=== PATIENT | male | born 1985 | race Caucasian/White ===

== ENCOUNTER 2017-05-19 09:25 | Emergency (ER) | payer OTHER ==
[~2017-05-19] VITALS: Ht 154.9 cm; Wt 35.3 kg
[2017-05-19] MEDS ORDERED: FLUT1SPR2 (09:38)
[2017-05-19] MEDS ORDERED: CETI10TA (09:38)
[2017-05-19] MEDS ORDERED: KETOROLAC 60 MG/2 ML VIAL (J1885) IM ONE (10:15)
[2017-05-19] MEDS ORDERED: NAPR500T PO (11:18)
[2017-05-19 11:23] VITALS: BP 144/83
--- NOTE | 2017-05-19 11:24 | REP ---
RIGHT RIB SERIES: Four views of the right ribs are performed and demonstrate no fracture or bone lesion. An accompanying view of the chest demonstrates no acute infiltrate, pneumothorax, or pleural effusion. The heart is normal in size. IMPRESSION: Negative right rib series. Signed by Haseeb Segundo MD 05/19/2017 04:55 P
--- NOTE | 2017-05-19 20:28 | ECGEPIP ---
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
== END 2017-05-19 11:26 | disposition home or self-care (01) ==
LOC: M ED 09:25
DX: M94.0 Chondrocostal junction syndrome [Tietze] (principal); Z88.2 Allergy status to sulfonamides
CPT/HCPCS: 71101; 93000; 96372; 99283; J1885

== ENCOUNTER 2018-12-07 19:13 | Emergency (ER) | payer OTHER ==
[~2018-12-07] VITALS: Ht 154.9 cm; Wt 72.7 kg
[~2018-12-07 19:13] MED LIST: CETI10TA; FLUT1SPR2; NAPR-50 PO
[2018-12-07] MEDS ORDERED: MONT10TA2 (19:23)
[2018-12-07] MEDS ORDERED: VITA50005 (19:23)
[2018-12-07] MEDS ORDERED: NAPROXEN 250 MG TAB PO ONE (20:15)
[2018-12-07] MEDS ORDERED: diazePAM 10 MG TAB PO ONE (20:15)
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
[2018-12-07] MEDS ORDERED: NAPR-50 PO (20:59)
[2018-12-07] MEDS ORDERED: ROBA500T PO (20:59)
[2018-12-07] MEDS ORDERED: LIDO1PAD TOP (21:01)
[2018-12-07 21:06] VITALS: BP 138/79
== END 2018-12-07 21:08 | disposition home or self-care (01) ==
LOC: M ED 19:13
DX: S29.012A Strain of muscle and tendon of back wall of thorax, initial encounter (principal); V47.5XXA Car driver injured in collision with fixed or stationary object in traffic accident, initial encounter; Y92.410 Unspecified street and highway as the place of occurrence of the external cause; Z79.899 Other long term (current) drug therapy; Z88.2 Allergy status to sulfonamides; F17.210 Nicotine dependence, cigarettes, uncomplicated

== ENCOUNTER 2018-12-11 03:58 | Emergency (ER) | payer OTHER ==
[~2018-12-11 03:58] MED LIST changes: +LIDO1PAD TOP; +MONT10TA2; +ROBA500T PO; +VITA50005
[2018-12-11 04:22] VITALS: BP 141/64
== END 2018-12-11 04:31 | disposition left against medical advice (07) ==
LOC: M ED 03:58
DX: Z53.21 Procedure and treatment not carried out due to patient leaving prior to being seen by health care provider (principal)

== ENCOUNTER 2018-12-21 19:18 | Emergency (ER) | payer OTHER ==
[~2018-12-21] VITALS: Ht 154.9 cm; Wt 70.0 kg
[2018-12-21 20:36] LABS: HEMATOCRIT 43.5 % (42.0-52.0); HEMOGLOBIN 14.7 g/dl (13.5-17.5); MEAN CORPUSCULAR HEMOGLOBIN 29.6 pg (27.0-33.0); MEAN CORPUSCULAR HGB CONC 33.8 g/dl (32.0-36.5); MEAN CORPUSCULAR VOLUME 87.7 fl (80.0-96.0); PLATELET COUNT, AUTOMATED 218 10^3/uL (150-450); RED BLOOD COUNT 4.96 10^6/uL (4.30-6.10); WHITE BLOOD COUNT 5.8 10^3/uL (4.0-10.0)
[2018-12-21 21:10] LABS: ACETAMINOPHEN LEVEL < 2.0 UG/ML (10.0-30.0); ALBUMIN 4.3 GM/DL (3.2-5.2); ALT/SGPT 35 U/L (12-78); BILIRUBIN,DIRECT < 0.1 MG/DL (0.0-0.2); BILIRUBIN,TOTAL 0.4 MG/DL (0.2-1.0); BLOOD UREA NITROGEN 11 MG/DL (7-18); CALCIUM LEVEL 8.7 MG/DL (8.5-10.1); CARBON DIOXIDE LEVEL 24 MEQ/L (21-32); CHLORIDE LEVEL 105 MEQ/L (98-107); CREATININE FOR GFR 1.14 MG/DL (0.70-1.30); ETHYL ALCOHOL (ETHANOL) < 0.003 % (0.000-0.010); GLOMERULAR FILTRATION RATE > 60.0 (>60); GLUCOSE, FASTING 100 MG/DL (70-100); POTASSIUM SERUM 4.3 MEQ/L (3.5-5.1); SALICYLATE LEVEL 4.3 MG/DL (5.0-30.0); SODIUM LEVEL 138 MEQ/L (136-145); THYROID STIMULATING HORMONE 0.684 uIU/ML (0.358-3.740); TOTAL PROTEIN 7.9 GM/DL (6.4-8.2)
[2018-12-21 21:10] LABS: AMPHETAMINES LEVEL URINE NEGATIVE (NEGATIVE); BARBITURATES URINE NEGATIVE (NEGATIVE); BENZODIAZEPINES URINE NEGATIVE (NEGATIVE); CANNABINOIDS URINE POSITIVE (NEGATIVE); COCAINE METABOLITE URINE NEGATIVE (NEGATIVE); METHADONE URINE NEGATIVE (NEGATIVE); OPIATES URINE NEGATIVE (NEGATIVE); PHENCYCLIDINE URINE NEGATIVE (NEGATIVE)
[2018-12-21 23:09] VITALS: BP 119/71
[2018-12-22] MEDS ORDERED: NAPR-885 (11:56)
[2018-12-22] MEDS ORDERED: BUPR150T3 (11:56)
[2018-12-22] MEDS ORDERED: OXYC1TAB23 PO (13:54)
== END 2018-12-21 23:10 | disposition home or self-care (01) ==
LOC: M ED 19:18
DX: F43.0 Acute stress reaction (principal); F41.9 Anxiety disorder, unspecified; J30.9 Allergic rhinitis, unspecified; L71.9 Rosacea, unspecified; Z72.0 Tobacco use; Z79.899 Other long term (current) drug therapy; Z88.2 Allergy status to sulfonamides
CPT/HCPCS: 36415; 80048; 80076; 80307; 84443; 85027; 99284; G0480

== ENCOUNTER 2018-12-22 11:47 | Emergency (ER) | payer OTHER ==
[~2018-12-22] VITALS: Ht 154.9 cm; Wt 69.8 kg
[2018-12-22] MEDS ORDERED: BUPR150T3 (11:56)
[2018-12-22] MEDS ORDERED: NAPR-885 (11:56)
--- NOTE | 2018-12-22 12:48 | REP ---
RIGHT HAND COMPLETE: 12/22/2018. CLINICAL HISTORY: Right hand pain, "no known injury." FINDINGS: There were no prior studies. There is a distal 5th metacarpal shaft fracture with dorsal apex angulation. No subluxation or dislocation at the 5th MCP joint. Remainder of the bones of the hand, wrist, and digits are all intact. IMPRESSION: 1. Distal 5th metacarpal fracture with dorsal apex angulation. No involvement of the joint. No other finding. Electronically Signed by Alexandre Juarez MD 12/22/2018 07:47 P
[2018-12-22] MEDS ORDERED: OXYC1TAB23 PO (13:54)
[2018-12-22] MEDS ORDERED: PERCOCET 5MG/325MG TAB PO ONE (14:00)
[2018-12-22 14:04] VITALS: BP 128/67
== END 2018-12-22 14:05 | disposition home or self-care (01) ==
LOC: M ED 11:47
DX: S62.356A Nondisplaced fracture of shaft of fifth metacarpal bone, right hand, initial encounter for closed fracture (principal); X58.XXXA Exposure to other specified factors, initial encounter; Y92.098 Other place in other non-institutional residence as the place of occurrence of the external cause; Z88.2 Allergy status to sulfonamides; Z79.899 Other long term (current) drug therapy; Z79.1 Long term (current) use of non-steroidal anti-inflammatories (NSAID)

== ENCOUNTER 2019-01-17 10:20 | Emergency (ER) | payer OTHER ==
[~2019-01-17] VITALS: Ht 154.9 cm; Wt 72.7 kg
[~2019-01-17 10:20] MED LIST changes: +BUPR150T3; -NAPR-50 PO; +NAPR-837 PO; +NAPR-885; +OXYC1TAB23 PO
[2019-01-17] MEDS ORDERED: ESCI10TA2 (10:39)
[2019-01-17] MEDS ORDERED: MONT10TA2 (10:39)
[2019-01-17] MEDS ORDERED: HYDR-3363 (10:39)
[2019-01-17 11:34] LABS: BASO % 0.8 % (0.0-1.0); EOS # 0.1 10^3/uL (0.0-0.50); EOS % 1.5 % (0.0-3.0); HEMATOCRIT 42.8 % (42.0-52.0); HEMOGLOBIN 14.5 g/dl (13.5-17.5); LYMPH # 1.4 10^3/uL (1.5-4.5); LYMPH % 26.1 % (24.0-44.0); MEAN CORPUSCULAR HEMOGLOBIN 29.8 pg (27.0-33.0); MEAN CORPUSCULAR HGB CONC 33.9 g/dl (32.0-36.5); MEAN CORPUSCULAR VOLUME 87.9 fl (80.0-96.0); MONO # 0.8 10^3/uL (0.0-0.8); MONO % 14.6 % (0.0-5.0); NEUTROPHILS % 56.8 % (36.0-66.0); PLATELET COUNT, AUTOMATED 192 10^3/uL (150-450); RED BLOOD COUNT 4.87 10^6/uL (4.30-6.10); WHITE BLOOD COUNT 5.3 10^3/uL (4.0-10.0)
[2019-01-17 11:42] LABS: BLOOD UREA NITROGEN 8 MG/DL (7-18); CALCIUM LEVEL 8.1 MG/DL (8.5-10.1); CARBON DIOXIDE LEVEL 27 MEQ/L (21-32); CHLORIDE LEVEL 104 MEQ/L (98-107); CPK CREATINE PHOSPHOKINASE 231 U/L (39-308); GLOMERULAR FILTRATION RATE > 60.0 (>60); GLUCOSE, FASTING 101 MG/DL (70-100); MB/CK RELATIVE INDEX 0.65 (< OR =4); POTASSIUM SERUM 3.5 MEQ/L (3.5-5.1); SODIUM LEVEL 138 MEQ/L (136-145); TROPONIN I < 0.02 NG/ML (< 0.10)
--- NOTE | 2019-01-17 11:51 | REP ---
CT of the brain without IV contrast: Comparison is 06/27/2016. There is no hemorrhage. There is no edema, mass effect or midline shift. The cortical stripe is unremarkable. The ventricles are normal size and midline. The visualized paranasal sinuses and mastoid air cells are clear. Impression: There is no hemorrhage, acute infarct or mass. Essentially negative CT study of the brain. There is no interval change. Electronically Signed by Haseeb Chin MD 01/17/2019 11:43 A
--- NOTE | 2019-01-17 14:20 | REP ---
MR angiography the brain without contrast: History: TIA versus CVA. Technique: 3-D [id number] MR angiography of the brain is acquired in the usual fashion and maximal intensity projection images were generated in rotational format about the vertical and horizontal axes. In addition, source axial T1-weighted images are viewed in cine mode. MR angiographic findings: The distal vertebral arteries are patent and co-dominant. Basilar artery is a little tortuous but widely patent. The posterior cerebral and superior cerebellar vessels are normal and symmetric. The distal internal carotid arteries are unremarkable. Anterior and middle cerebral arteries appear intact. There is no visible sanchez aneurysm or arteriovenous malformation. Impression: Unremarkable MR angiography the brain. Electronically Signed by Chandan Mendoza MD 01/17/2019 02:12 P
--- NOTE | 2019-01-17 14:37 | REP ---
MRI brain without contrast: History: TIA versus CVA. Comparison is made with today's head CT. Technique: Axial and sagittal imaging planes are utilized for T1 and T2-weighted scans. Sequences include spin-echo, fast spin echo, FLAIR, and diffusion weighted sequences. MRI findings: No bony calvarial lesion is seen. Craniocervical junction and upper cervical cord are normal in appearance. There is mucosal thickening affecting the maxillary sinuses bilaterally, left greater than right. Otherwise, the paranasal sinuses are clear. No intraorbital abnormality is seen. Lateral, third, and fourth ventricles are normal in size and position. There is no evidence of intracranial hemorrhage or acute infarction. Diffusion weighted scans show no evidence of restricted diffusion. No mass lesion is seen. Segundo white differentiation pattern is normal above below the tentorium. Impression: Bilateral maxillary sinus mucosal thickening. Otherwise normal MRI study of the brain. There is no evidence of acute ischemia or other acute intracranial lesion. Electronically Signed by Chandan Mendoza MD 01/17/2019 08:33 P
[2019-01-17 16:22] VITALS: BP 112/62
--- NOTE | 2019-01-18 08:15 | ECGEPIP ---
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
== END 2019-01-17 16:25 | disposition home or self-care (01) ==
LOC: EDBD 10:20 → M ED 10:20
DX: R20.2 Paresthesia of skin (principal); F41.9 Anxiety disorder, unspecified; Z72.0 Tobacco use; Z79.899 Other long term (current) drug therapy; Z88.2 Allergy status to sulfonamides

== ENCOUNTER 2019-02-13 19:52 | Emergency (ER) | payer OTHER ==
[~2019-02-13] VITALS: Ht 154.9 cm; Wt 81.8 kg
[~2019-02-13 19:52] MED LIST changes: +ESCI10TA2; +HYDR-3363
[2019-02-13] MEDS ORDERED: TYLETAB14 PO (20:13)
[2019-02-13] MEDS ORDERED: PERCOCET 5MG/325MG TAB PO ONE (23:45)
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
[2019-02-14 00:28] VITALS: BP 120/68
[2019-02-14] MEDS ORDERED: OXYCODONE/APAP 5MG/325MG(BULK FOR ED) 1 TABLET PO ONE (00:30)
== END 2019-02-14 00:27 | disposition home or self-care (01) ==
LOC: M ED 19:52
DX: S20.212A Contusion of left front wall of thorax, initial encounter (principal); W19.XXXA Unspecified fall, initial encounter; Y92.89 Other specified places as the place of occurrence of the external cause; S62.366A Nondisplaced fracture of neck of fifth metacarpal bone, right hand, initial encounter for closed fracture; E78.5 Hyperlipidemia, unspecified; F41.9 Anxiety disorder, unspecified; E66.9 Obesity, unspecified; E05.90 Thyrotoxicosis, unspecified without thyrotoxic crisis or storm; F17.200 Nicotine dependence, unspecified, uncomplicated; Z79.891 Long term (current) use of opiate analgesic; Z91.040 Latex allergy status

== ENCOUNTER 2019-05-23 16:59 | Inpatient (IN) | payer OTHER ==
[~2019-05-23] VITALS: Ht 154.9 cm; Wt 65.4 kg
[~2019-05-23 16:59] MED LIST changes: +TYLETAB14 PO
[2019-05-23] MEDS ORDERED: ALL10TAB29 PO (17:14)
[2019-05-23] MEDS ORDERED: FLUT15.820 NARES (17:14)
[2019-05-23 17:22] LABS: BASO % 0.3 % (0.0-1.0); EOS # 0.1 10^3/uL (0.0-0.50); HEMATOCRIT 43.6 % (42.0-52.0); HEMOGLOBIN 14.7 g/dl (13.5-17.5); LYMPH # 2.1 10^3/uL (1.5-4.5); LYMPH % 19.3 % (24.0-44.0); MEAN CORPUSCULAR HEMOGLOBIN 29.5 pg (27.0-33.0); MEAN CORPUSCULAR HGB CONC 33.7 g/dl (32.0-36.5); MEAN CORPUSCULAR VOLUME 87.4 fl (80.0-96.0); MONO # 0.5 10^3/uL (0.0-0.8); MONO % 4.6 % (0.0-5.0); NEUTROPHILS # 7.9 10^3/uL (1.8-7.7); NEUTROPHILS % 74.5 % (36.0-66.0); PLATELET COUNT, AUTOMATED 232 10^3/uL (150-450); RED BLOOD COUNT 4.99 10^6/uL (4.30-6.10); WHITE BLOOD COUNT 10.6 10^3/uL (4.0-10.0)
[2019-05-23 17:59] LABS: ACETAMINOPHEN LEVEL < 2.0 UG/ML (10.0-30.0); ALBUMIN 3.7 GM/DL (3.2-5.2); ALT/SGPT 29 U/L (12-78); BILIRUBIN,DIRECT < 0.1 MG/DL (0.0-0.2); BILIRUBIN,TOTAL 0.2 MG/DL (0.2-1.0); BLOOD UREA NITROGEN 6 MG/DL (7-18); CALCIUM LEVEL 8.8 MG/DL (8.5-10.1); CARBON DIOXIDE LEVEL 25 MEQ/L (21-32); CHLORIDE LEVEL 110 MEQ/L (98-107); CPK CREATINE PHOSPHOKINASE 93 U/L (39-308); CREATININE FOR GFR 1.17 MG/DL (0.70-1.30); ETHYL ALCOHOL (ETHANOL) 0.005 % (0.000-0.010); GLOMERULAR FILTRATION RATE > 60.0 (>60); GLUCOSE, FASTING 101 MG/DL (70-100); POTASSIUM SERUM 4.2 MEQ/L (3.5-5.1); SALICYLATE LEVEL 4.3 MG/DL (5.0-30.0); SODIUM LEVEL 143 MEQ/L (136-145); THYROID STIMULATING HORMONE 0.196 uIU/ML (0.358-3.740); TOTAL PROTEIN 7.2 GM/DL (6.4-8.2)
[2019-05-23 19:20] LABS: AMPHETAMINES LEVEL URINE NEGATIVE (NEGATIVE); BARBITURATES URINE NEGATIVE (NEGATIVE); BENZODIAZEPINES URINE POSITIVE (NEGATIVE); CANNABINOIDS URINE POSITIVE (NEGATIVE); COCAINE METABOLITE URINE POSITIVE (NEGATIVE); METHADONE URINE NEGATIVE (NEGATIVE); OPIATES URINE NEGATIVE (NEGATIVE); PHENCYCLIDINE URINE NEGATIVE (NEGATIVE)
[2019-05-23] MEDS ORDERED: ACETAMINOPHEN TAB 650MG DOSE (2X325MG) PO ONE (21:45)
[2019-05-23] MEDS ORDERED: CETI10TA4 PO (22:35)
[2019-05-23] MEDS ORDERED: FLON1SPR (22:35)
[2019-05-23] MEDS ORDERED: MAALOX 30 ML SUSP *UDC PO PRN (23:30)
[2019-05-23] MEDS ORDERED: ACETAMINOPHEN TAB 650MG DOSE (2X325MG) PO PRN (23:30)
[2019-05-23] MEDS ORDERED: MOM 30ML SUSPENSION UDC PO PRN (23:30)
[2019-05-23] MEDS ORDERED: traZODone 50 MG TAB PO PRN (23:30)
[2019-05-24] MEDS ORDERED: NICOTINE 21MG/24HR 1 EA TRANSDERMAL TD ONE (00:45)
[2019-05-24 01:30] VITALS: BP 153/86
[2019-05-24] MEDS ORDERED: OLANZapine ORAL DISINTEGRATING TAB 5MG PO PRN (02:15)
[2019-05-24 06:51] VITALS: BP 113/55
--- NOTE | 2019-05-24 07:18 | ECGEPIP ---
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
[2019-05-24 11:34] VITALS: BP 145/94
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
--- NOTE | 2019-05-24 12:15 | HPEPDOC ---
General Date of Admission May 23, 2019 at 23:18 Date of Service: May 24, 2019 Attending Physician: CHAVA MATHEW MD Chief Complaint The patient is a 33-year-old male admitted with a reason for visit of Unspecified Depressive Disorder. History of Present Illness Lan Panchal is a 33 year old male, admitted under involuntary admission by concerned family members after found overdosed and unresponsive. Patients urine tox screen was positive for cocaine, benzodiazepine, THC. On assessment, he complains of right hand fracture and pain. He denies chest pain, shortness of breath, weakness, abdominal pain, nausea, chills or fever. Home Medications Scheduled Cetirizine HCl (Cetirizine HCl) 10 Mg Tablet, 10 MG PO QHS, (Reported) Fluticasone Propionate (Flonase Allergy Relief) 9.9 Ml [place].susp, 2 SPRAYS NA DAILY, (Reported) Allergies Coded Allergies: Latex, Natural Rubber (Verified Allergy, Unknown, RASH, 02/13/19) Sulfa (Sulfonamide Antibiotics) (Verified Allergy, Unknown, 05/23/19) Past Medical History Medical History Denies medical history Surgical History Hernia repair Deviated septum repair Family History Mother: Diabetes mellitus Social History Smokes one pack per day of cigarettes, denies alcohol, ongoing polysubstance abu se with cocaine, benzos and THC A-FIB/CHADSVASC A-FIB History Current/History of A-Fib/PAF?: No Current PO Anticoag Therapy: No Review of Systems Other systems A pertinent 10 point review of systems is completed, negative except as stated in the history of presenting illness Physical Examination Other physical findings GENERAL: NAD SKIN : Warm, dry intact HEENT: Atraumatic, normocephalic, PERRL, moist mucous membrane CARDIOVASCULAR: Regular rate and rhythm, S1S2, no JVD, no edema, distal pulses + palpable RESP: CTAB, no accessory muscle use noted ABDOMEN: BS+ non distended non tender MS: Limited range of motion to right hand NEURO: Alert and oriented x 3, CN2-12 grossly intact PSYCH: no anxiety or agitation, appropriate mood and affect. Vital Signs Vital Signs Date Time Temp Pulse Resp B/P (MAP) Pulse Ox O2 Delivery O2 Flow Rate FiO2 05/24/19 11:34 98.7 77 16 145/94 (111) 05/24/19 01:08 99 Room Air Laboratory Data Labs 24H Laboratory Tests 2 05/23/19 17:13: Immature Granulocyte % (Auto) 0.3, White Blood Count 10.6H, Red Blood Count 4.99, Hemoglobin 14.7, Hematocrit 43.6, Mean Corpuscular Volume 87.4, Mean Corpu scular Hemoglobin 29.5, Mean Corpuscular Hemoglobin Concent 33.7, Red Cell Distribution Width 14.0, Platelet Count 232, Neutrophils (%) (Auto) 74.5H, Lymphocytes (%) (Auto) 19.3L, Monocytes (%) (Auto) 4.6, Eosinophils (%) (Auto) 1.0, Basophils (%) (Auto) 0.3, Neutrophils # (Auto) 7.9H, Lymphocytes # (Auto) 2.1, Monocytes # (Auto) 0.5, Eosinophils # (Auto) 0.1, Basophils # (Auto) 0.0, Nucleated Red Blood Cells % (auto) 0.0, Anion Gap 8, Glomerular Filtration Rate > 60.0, Calcium Level 8.8, Aspartate Amino Transf (AST/SGOT) 22, Alanine Aminotransferase (ALT/SGPT) 29, Alkaline Phosphatase 69, Total Bilirubin 0.2, Direct Bilirubin < 0.1, Total Creatine Kinase 93, Total Protein 7.2, Albumin 3.7, Albumin/Globulin Ratio 1.06, Thyroid Stimulating Hormone (TSH) 0.196L, Salicylates Level 4.3L, Acetaminophen Level < 2.0L, Ethyl Alcohol Level 0.005 05/23/19 18:45: Urine Amphetamines Screen NEGATIVE, Urine Benzodiazepines Screen POSITIVEH, Urine Opiates Screen NEGATIVE, Urine Methadone Screen NEGATIVE, Urine Barbiturates Screen NEGATIVE, Urine Phencyclidine Screen NEGATIVE, Urine Cocaine Metabolite Screen POSITIVEH, Urine Cannabinoids Screen POSITIVEH CBC/BMP Laboratory Tests 05/23/19 17:13 Red Blood Count 4.99, Mean Corpuscular Volume 87.4, Mean Corpuscular Hemoglobin 29.5, Mean Corpuscular Hemoglobin Concent 33.7, Red Cell Distribution Width 14.0 , Neutrophils (%) (Auto) 74.5 H, Lymphocytes (%) (Auto) 19.3 L, Monocytes (%) (Auto) 4.6, Eosinophils (%) (Auto) 1.0, Basophils (%) (Auto) 0.3, Neutrophils # (Auto) 7.9 H, Lymphocytes # (Auto) 2.1, Monocytes # (Auto) 0.5, Eosinophils # (Auto) 0.1, Basophils # (Auto) 0.0 Assessment/Plan Right hand pain -Staff reported patient originally had a with prior treatment by health informatics specialist -Patient reportedly took off the cast -Requesting Tylenol 3 for pain Polysubstance abuse -Evaluation and management by primary team Nicotine dependence -Evaluation and management by primary team Plan / VTE VTE Prophylaxis Ordered?: No VTE Exclusion Mechanical Proph: Low Risk for VTE MARCUS FREEMAN TRANSFER MAN May 24, 2019 12:15
--- NOTE | 2019-05-24 12:20 | MHDSPDOC ---
[facility] Discharge Summary Discharge Summary Date of Service: 05/24/2019 Chief Complaint "I don't know why they admitted me." History of Present Illness The patient a 33-year-old man presented to [facility]. Initially, there was a concern of overdose however, when further clarified in the ER it was unclear as to whether the patient had been found after taking an overdose of drugs in an intentional or unintentional manner. However, the patient was admitted for further evaluation, on suspicion. When the patient was met with, he described that he had not taken any overdose and was confused as he had reported having seizure-like symptoms and convulsions and subsequently did not remember. He emphatically denied any suicide attempt. Further collateral information gathered from his mother and grandmother supports that although there was an assumed overdose, there was no evidence of an overdose. Review of the labs indicate that there was no signs of an overdose, no heightened amount of medication. His family revealed no signs of an overdose such as empty pill bottles or other means by which he can injure himself. He was reportedly was only unobserved for a very short amount of time. The EMS report had noted only a presentation with convulsions and the patient reported that he had been using drugs. After further collateral gathering, it became clear that the patient's account of the events was most likely true as there was no notati on or observation or signs or evidence of an overdose, and that the patient's report was consistent with a sudden-onset seizure. The patient reportedly has done drugs in the past and had recently been using cocaine and marijuana, but reports that on the day in question he was not using. He reports no psychiatric symptoms prior. His mother and grandmother report that he has had some difficulty with the breakup from a girlfriend, but had not been making overt suicidal threats. Review Of Systems Depression: The patient denies any episodes of unprovoked depressed mood associated with neurovegetative symptoms lasting longer than 2 weeks with symptoms present nearly everyday. Anxiety: The patient denies any excessive worry associated with physical symptoms. They deny any experience of discreet panic in the past. Marsha: The patient denies any episodes of euphoria/dysphoria associated with d ecreased need for sleep, hedonism, talkatively or impulsivity lasting longer than 5 days. Psychotic: The patient denies any experiences of auditory or visual hallucinations. They deny any episodes of paranoia or delusional thinking in the past Trauma: The patient denies any traumatic events associated with nightmares or intrusive thoughts. Borderline: The patient screens negative for borderline personality at this junction. Past Psychiatric History The patient has never been admitted to an inpatient setting before. Has been treated at [facility] for a short time. Denies any history of suicide attempts. Describes he had been tried on Xanax in the past. Allergies Please see below. Family Psychiatric History The patient reports that his dad was an alcoholic. Denies mental health history or suicides in the family. Social History The patient grew up in the local area and reportedly had parents who were when he was growing up. He had been involved in legal problems as a youthful offender, but subsequently has only had traffic tickets as an adult. He is currently employed and has two years of college in [place]. He lives with his mother at this time. He has been together with his reported significant other for three years. Has no children. Has never been . He has a close relationship with his one sister. He does describe having some difficulty with substance. Denies having significant history of abuse or trauma. Substance Abuse History The patient reportedly has had difficulties with cocaine, cannabis and benzodiazepine misuse. However, he describes that he has not been using opioids or other concerning substances recently and especially on the day in question. He reports only drinking alcohol monthly or less roughly three to four drinks at a time and reports smoking tobacco roughly five or more cigarettes a day. Medical History Reportedly has a history of hypothyroidism that is currently untreated. Mental Status Examination General: Well dressed with good hygiene Speech: Spontaneous and fluid Thought processes: Linear and logical MSK: Smooth and coordinated gait, no signs of tremors or involuntary orofacial movements Thought content: Future orientated Abstract reasoning, and computation: Intact Description of associations: Intact Description of abnormal or psychotic thoughts: Denies any suicidal or homicidal ideation. Denies any auditory or visual hallucinations. Does not appear to be responding to internal stimuli. Does not appear to be endorsing any bizarre or paranoid ideation. Judgment: fair Insight: fair Orientation: Alert and orientated 3 Cognition: Grossly normal Recent and remote memory: Intact Attention span and concentration: Intact Fund of knowledge: Adequate Mood: "okay" Affect: Euthymic with a full range Diagnoses Psychiatric evaluation as requested by an authority. Cocaine use disorder, unspecified. Cannabis use disorder, unspecified. Tobacco use disorder, mild. Assessment and Plan The patient a 33-year-old man with no major psychiatric history is presented to [facility] on the initial assumption of an overdose. However, upon further investigation and collateral gathering, it appears to be consistent with the patient's story that he was likely ceasing from an unknown cause which provoked his admission. Due to his substance use, his mother and grandmother admitted that they had been concerned about an overdose and that subsequently in the ER, they had proceeded with this understanding and he had been admitted. The patient's observations on the unit indicate that he has not been suicidal demonstrating no concerning ideation and generally able to attend to his needs, although he was distressed upon initial admission as would be understandable. He was not behaviourally unstable or demonstrating signs or symptoms of major mental illness. He did not meet involuntary criteria for a further extension of his admission in this provider's clinical judgment as his account of things as per collateral information and further investigations verified that the events leading to his admission were likely medically related and not psychiatric. He did not meet criteria for further involuntary admission as he was not demonstrating any suicidal or homicidal ideation, was not significantly impaired on observation on the unit and elected against the further inpatient admission, and thus will be discharged in [facility]. Disposition Discharge same day. Discussion with parents. Mom and grandmother reports that they feel safe taking the patient back and that after further discussion are eager to have him home. Problem List Substance use. Initial Treatment Plan 1. Patient was admitted on a 9.39 legal status. 2. Complete history was obtained. 3. With patients permission, family will be contacted and database will be expanded. 4. Patients medication regimen will be reviewed and changed accordingly. 5. Patient will be provided with protected environment. 6. Patient will be treated with individual, group, and milieu therapies. 7. Patient will receive supportive psych-education. 8. Discharge planning will commence immediately. 9. Outpatient follow-up treatment will be strongly recommended. 10. The initial treatment plan will focus initially on: Collateral gathering. Estimated Length Of Stay One day. Time Spent Forty minutes. Wednesday Vital Signs/I&Os Vital Signs Date Time Temp Pulse Resp B/P (MAP) Pulse Ox O2 Delivery O2 Flow Rate FiO2 05/24/19 11:34 98.7 77 16 145/94 (111) 8/14/19 01:08 99 Room Air Laboratory Data Labs 24H Laboratory Tests 2 05/23/19 17:13: Immature Granulocyte % (Auto) 0.3, White Blood Count 10.6H, Red Blood Count 4.99, Hemoglobin 14.7, Hematocrit 43.6, Mean Corpuscular Volume 87.4, Mean Corpuscular Hemoglobin 29.5, Mean Corpuscular Hemoglobin Concent 33.7, Red Cell Distribution Width 14.0, Platelet Count 232, Neutrophils (%) (Auto) 74.5H, Lymphocytes (%) (Auto) 19.3L, Monocytes (%) (Auto) 4.6, Eosinophils (%) (Auto) 1.0, Basophils (%) (Auto) 0.3, Neutrophils # (Auto) 7.9H, Lymphocytes # (Auto) 2.1, Monocytes # (Auto) 0.5, Eosinophils # (Auto) 0.1, Basophils # (Auto) 0.0, Nucleated Red Blood Cells % (auto) 0.0, Anion Gap 8, Glomerular Filtration Rate > 60.0, Calcium Level 8.8, Aspartate Amino Transf (AST/SGOT) 22, Alanine Aminotransferase (ALT/SGPT) 29, Alkaline Phosphatase 69, Total Bilirubin 0.2, Direct Bilirubin < 0.1, Total Creatine Kinase 93, Total Protein 7.2, Albumin 3.7, Albumin/Globulin Ratio 1.06, Thyroid Stimulating Hormone (TSH) 0.196L, Salicylates Level 4.3L, Acetaminophen Level < 2.0L, Ethyl Alcohol Level 0.005 05/23/19 18:45: Urine Amphetamines Screen NEGATIVE, Urine Benzodiazepines Screen POSITIVEH, Urine Opiates Screen NEGATIVE, Urine Methadone Screen NEGATIVE, Urine Barbiturates Screen NEGATIVE, Urine Phencyclidine Screen NEGATIVE, Urine Cocaine Metabolite Screen POSITIVEH, Urine Cannabinoids Screen POSITIVEH CBC/BMP Laboratory Tests 05/23/19 17:13 Red Blood Count 4.99, Mean Corpuscular Volume 87.4, Mean Corpuscular Hemoglobin 29.5, Mean Corpuscular Hemoglobin Concent 33.7, Red Cell Distribution Width 14.0, Neutrophils (%) (Auto) 74.5 H, Lymphocytes (%) (Auto) 19.3 L, Monocytes (%) (Auto) 4.6, Eosinophils (%) (Auto) 1.0, Basophils (%) (Auto) 0.3, Neutrophils # (Auto) 7.9 H, Lymphocytes # (Auto) 2.1, Monocytes # (Auto) 0.5, Eosinophils # (Auto) 0.1, Basophils # (Auto) 0.0 Medications Scheduled Cetirizine HCl (Cetirizine HCl) 10 Mg Tablet, 10 MG PO QHS, (Reported) Fluticasone Propionate (Flonase Allergy Relief) 9.9 Ml [place].susp, 2 SPRAYS NA DAILY, (Reported) Nicotine (Nicotine Patch) 7 Mg/24 Hr Patch.td24, 1 PATCH TOP DAILY for smoking cessation for 30 Days, #30 Allergies Coded Allergies: Latex, Natural Rubber (Verified Allergy, Unknown, RASH, 02/13/19) Sulfa (Sulfonamide Antibiotics) (Verified Allergy, Unknown, 05/23/19) JOSSUE DYE DO May 24, 2019 12:20
[2019-05-24] MEDS ORDERED: NICO1DIS7 TOP (12:34)
[2019-05-24 12:46] VITALS: BP 132/77
== END 2019-05-24 13:58 | disposition home or self-care (01) | DRG 861 ==
LOC: EDBD 16:59 → M ED 16:59 → M ED INP 23:18 → M PSY 05-24 01:15
PROVIDERS: ADMIT Psychiatry & Neurology Psychiatry; ATTEND Psychiatry & Neurology Addiction Medicine
DX: Z04.6 Encounter for general psychiatric examination, requested by authority (principal); F12.90 Cannabis use, unspecified, uncomplicated; F17.200 Nicotine dependence, unspecified, uncomplicated; F14.90 Cocaine use, unspecified, uncomplicated; Z79.899 Other long term (current) drug therapy; Z88.2 Allergy status to sulfonamides; Z91.040 Latex allergy status

== ENCOUNTER → 2019-05-29 | Outpatient (REF) | payer OTHER ==
[~2019-05-29] MED LIST changes: +ALL10TAB28 PO; +CETI10TA4 PO; +FLON1SPR; +FLUT50SP21 NARES; +NICO1DIS7 TOP
[2019-05-29 11:52] LABS: CHOLESTEROL RISK RATIO 4.333 (<5); FREE T4 1.3 NG/DL (0.76-1.46); THYROID STIMULATING HORMONE 0.404 uIU/ML (0.358-3.740)
[2019-05-29 12:18] LABS: HEMOGLOBIN A1c 5.8 %
[2019-05-29 14:53] LABS: TOTAL 25(OH) VITAMIN D 18.7 NG/ML (30.0-100.0)
== END ==
LOC: M SFHCPLAZ 09:42
PROVIDERS: ATTEND Nurse Practitioner Family
DX: E78.5 Hyperlipidemia, unspecified (principal); Z92.3 Personal history of irradiation

== ENCOUNTER 2019-06-27 18:54 | Emergency (ER) | payer OTHER ==
[~2019-06-27] VITALS: Ht 154.9 cm; Wt 65.5 kg
[~2019-06-27 18:54] MED LIST changes: -[UNRECOGNIZED DRUG - CODE] PO
[2019-06-27] MEDS ORDERED: [UNRECOGNIZED DRUG - CODE] PO (20:03)
[2019-06-27] MEDS ORDERED: NS 1,000 ML IV ONE (20:45)
[2019-06-27] MEDS ORDERED: ISOVUE-370 76% 100ML VIAL (Q9967) As Ordered ONE (20:48)
--- NOTE | 2019-06-27 21:23 | REPVR ---
EXAM: CT Abdomen and Pelvis With Contrast EXAM DATE/TIME: 06/27/2019 9:04 PM CLINICAL HISTORY: 33 years old, male; Abdominal pain; Generalized; Additional info: Hepatitis TECHNIQUE: Imaging protocol: Computed tomography of the abdomen and pelvis with intravenous contrast. Radiation optimization: All CT scans at this facility use at least one of these dose optimization techniques: automated exposure control; mA and/or kV adjustment per patient size (includes targeted exams where dose is matched to clinical indication); or iterative reconstruction. Contrast material: ISOVUE 370; Contrast volume: 100 ml; Contrast route: IV; COMPARISON: CR Spine. Lumbosacral, complete 12/07/2018 8:30 PM FINDINGS: Liver: The liver attenuation is 75 Hounsfield units and the spleen is 117 Hounsfield units. Gallbladder and bile ducts: Normal. No calcified stones. No ductal dilation. Pancreas: Normal. No ductal dilation. Spleen: Normal. No splenomegaly. Adrenals: Normal. No mass. Kidneys and ureters: Normal. No hydronephrosis. Stomach and bowel: Slight wall thickening of the colon from the distal descending colon to the rectum. Mild stool throughout the colon. Appendix: A normal appendix is seen. Intraperitoneal space: Unremarkable. No free air. No significant fluid collection. Vasculature: Unremarkable. No abdominal aortic aneurysm. Lymph nodes: Unremarkable. No enlarged lymph nodes. Bladder: Unremarkable as visualized. Reproductive: Unremarkable as visualized. Bones/joints: Unremarkable. No acute fracture. Soft tissues: Unremarkable. IMPRESSION: 1. Fatty infiltration of the liver. 2. Minimal nonspecific distal colitis from the distal descending colon to the rectum. 3. Otherwise negative CT abdomen/pelvis. Electronically signed by: Faraz Riggs On 06/27/2019 21:23:38 PM
[2019-06-27 22:15] VITALS: BP 136/71
== END 2019-06-27 22:20 | disposition home or self-care (01) ==
LOC: M ED 18:54
DX: R79.9 Abnormal finding of blood chemistry, unspecified (principal); K76.0 Fatty (change of) liver, not elsewhere classified; K52.9 Noninfective gastroenteritis and colitis, unspecified; F11.20 Opioid dependence, uncomplicated; Z79.899 Other long term (current) drug therapy; Z88.2 Allergy status to sulfonamides; Z91.040 Latex allergy status
CPT/HCPCS: 74177; 99284; Q9967

== ENCOUNTER → 2019-06-27 | Outpatient (REF) | payer OTHER ==
[~2019-06-27] MED LIST changes: -ALL10TAB28 PO; +ALL10TAB29 PO; +FLUT15.820 NARES; -FLUT50SP21 NARES; +[UNRECOGNIZED DRUG - CODE] PO
[2019-06-27 15:48] LABS: BASO # 0.1 10^3/uL (0.0-0.2); EOS # 0.6 10^3/uL (0.0-0.5); EOS % 8.3 % (0.0-3.0); HEMATOCRIT 47.3 % (42.0-52.0); HEMOGLOBIN 15.5 g/dl (13.5-17.5); LYMPH # 2.4 10^3/uL (1.5-5.0); LYMPH % 36.3 % (24.0-44.0); MEAN CORPUSCULAR HEMOGLOBIN 29.4 pg (27.0-33.0); MEAN CORPUSCULAR HGB CONC 32.8 g/dl (32.0-36.5); MEAN CORPUSCULAR VOLUME 89.8 fl (80.0-96.0); MONO # 0.5 10^3/uL (0.0-0.8); NEUTROPHILS # 3.1 10^3/uL (1.5-8.5); NEUTROPHILS % 46.1 % (36.0-66.0); PLATELET COUNT, AUTOMATED 220 10^3/uL (150-450); RED BLOOD COUNT 5.27 10^6/uL (4.30-6.10); WHITE BLOOD COUNT 6.7 10^3/uL (4.0-10.0)
[2019-06-27 15:58] LABS: INR 1.16; PROTHROMBIN TIME 14.5 SECONDS (11.8-14.0)
[2019-06-27 15:59] LABS: PARTIAL THROMBOPLASTIN TIME 37.4 SECONDS (25.0-38.4)
[2019-06-27 16:08] LABS: AMPHETAMINES URINE REFLEX NEGATIVE (NEGATIVE); BARBITURATES URINE REFLEX NEGATIVE (NEGATIVE); BENZODIAZEPINES URINE REFLEX PENDING CONFIRMATION (NEGATIVE); COCAINE METABOLITE URINE REFLE NEGATIVE (NEGATIVE); OPIATES URINE REFLEX NEGATIVE (NEGATIVE); PHENCYCLIDINE URINE REFLEX NEGATIVE (NEGATIVE)
[2019-06-27 16:09] LABS: CANNABINOIDS URINE REFLEX PENDING CONFIRMATION (NEGATIVE); METHADONE URINE REFLEX PENDING CONFIRMATION (NEGATIVE)
[2019-06-27 16:10] LABS: ALT/SGPT 882 U/L (12-78); BILIRUBIN,DIRECT 2.8 MG/DL (0.0-0.2); BILIRUBIN,TOTAL 3.7 MG/DL (0.2-1.0); BLOOD UREA NITROGEN 11 MG/DL (7-18); CALCIUM LEVEL 9.5 MG/DL (8.5-10.1); CARBON DIOXIDE LEVEL 29 MEQ/L (21-32); CHLORIDE LEVEL 102 MEQ/L (98-107); GLOMERULAR FILTRATION RATE > 60.0 (>60); GLUCOSE, FASTING 74 MG/DL (70-100); POTASSIUM SERUM 4.2 MEQ/L (3.5-5.1); SODIUM LEVEL 139 MEQ/L (136-145)
[2019-06-28 10:06] LABS: HEPATITIS B SURFACE ANTIGEN NEGATIVE (NEGATIVE)
[2019-06-28 10:33] LABS: HIV 1&2 SCREEN CENTAUR NEGATIVE (NEGATIVE)
[2019-06-28 10:36] LABS: HEPATITIS A ANTIBODY IGM NEGATIVE (NEGATIVE)
[2019-07-01 08:40] LABS: Benzodiazepines Positive (.); Cannabinoid Positive (.); GC Carboxy THC >300 ng/mL (Cutoff=10); GC Methadone 2385 ng/mL (Cutoff=100); GC OH-Alprazola 428 ng/mL (Cutoff=300); Methadone Positive (.); OH-Alprazolam Positive (.)
[2019-07-04 08:06] LABS: EBV VIRAL CAPSID AG IgM <36.0 U/mL (0.0-35.9)
== END ==
LOC: M SFHCPLAZ 14:19
PROVIDERS: ATTEND Family Medicine
DX: K75.9 Inflammatory liver disease, unspecified (principal)
CPT/HCPCS: 80053; 80307; 82140; 82248; 83605; 84600; 85025; 85610; 85730; 86663; 86664; 86665; 86709; 87340; 87389; 87521; G0480

== ENCOUNTER → 2019-07-05 | Outpatient (CLI) | payer OTHER ==
[~2019-07-05] MED LIST changes: +[UNRECOGNIZED DRUG - CODE] PO
[2019-07-05 14:00] LABS: BASO # 0.1 10^3/uL (0.0-0.2); BASO % 0.9 % (0.0-1.0); EOS # 0.1 10^3/uL (0.0-0.5); EOS % 1.3 % (0.0-3.0); HEMATOCRIT 43.3 % (42.0-52.0); HEMOGLOBIN 14.7 g/dl (13.5-17.5); LYMPH # 1.2 10^3/uL (1.5-5.0); LYMPH % 15.4 % (24.0-44.0); MEAN CORPUSCULAR HEMOGLOBIN 30.3 pg (27.0-33.0); MEAN CORPUSCULAR HGB CONC 33.9 g/dl (32.0-36.5); MEAN CORPUSCULAR VOLUME 89.3 fl (80.0-96.0); MONO # 0.4 10^3/uL (0.0-0.8); MONO % 5.6 % (0.0-5.0); NEUTROPHILS # 5.9 10^3/uL (1.5-8.5); NEUTROPHILS % 76.5 % (36.0-66.0); PLATELET COUNT, AUTOMATED 188 10^3/uL (150-450); RED BLOOD COUNT 4.85 10^6/uL (4.30-6.10); WHITE BLOOD COUNT 7.7 10^3/uL (4.0-10.0)
[2019-07-05 14:14] LABS: INR 1.14; PROTHROMBIN TIME 14.4 SECONDS (11.8-14.0)
[2019-07-05 14:15] LABS: PARTIAL THROMBOPLASTIN TIME 34.3 SECONDS (25.0-38.4)
[2019-07-05 14:31] LABS: ALT/SGPT 483 U/L (12-78); BLOOD UREA NITROGEN 9 MG/DL (7-18); CALCIUM LEVEL 9.2 MG/DL (8.5-10.1); CARBON DIOXIDE LEVEL 26 MEQ/L (21-32); CHLORIDE LEVEL 103 MEQ/L (98-107); CREATININE FOR GFR 1.07 MG/DL (0.70-1.30); GLOMERULAR FILTRATION RATE > 60.0 (>60); GLUCOSE, FASTING 140 MG/DL (70-100); POTASSIUM SERUM 4.1 MEQ/L (3.5-5.1); SODIUM LEVEL 137 MEQ/L (136-145)
[2019-07-05 14:32] LABS: ALBUMIN 3.6 GM/DL (3.2-5.2); BILIRUBIN,TOTAL 1.4 MG/DL (0.2-1.0); TOTAL PROTEIN 7.6 GM/DL (6.4-8.2)
== END ==
LOC: M LAB 13:20
PROVIDERS: ATTEND Nurse Practitioner Family
DX: K75.9 Inflammatory liver disease, unspecified (principal)

== ENCOUNTER → 2019-07-11 | Outpatient (REF) | payer OTHER ==
[2019-07-11 17:11] LABS: ALBUMIN 3.4 GM/DL (3.2-5.2); ALT/SGPT 903 U/L (12-78); BILIRUBIN,TOTAL 1.4 MG/DL (0.2-1.0); BLOOD UREA NITROGEN 8 MG/DL (7-18); CARBON DIOXIDE LEVEL 29 MEQ/L (21-32); CHLORIDE LEVEL 103 MEQ/L (98-107); CREATININE FOR GFR 1.07 MG/DL (0.70-1.30); GLOMERULAR FILTRATION RATE > 60.0 (>60); GLUCOSE, FASTING 108 MG/DL (70-100); POTASSIUM SERUM 4.1 MEQ/L (3.5-5.1); SODIUM LEVEL 137 MEQ/L (136-145); TOTAL PROTEIN 7.1 GM/DL (6.4-8.2)
[2019-07-11 17:13] LABS: HEMATOCRIT 43.2 % (42.0-52.0); HEMOGLOBIN 14.3 g/dl (13.5-17.5); MEAN CORPUSCULAR HGB CONC 33.1 g/dl (32.0-36.5); MEAN CORPUSCULAR VOLUME 90.8 fl (80.0-96.0); PLATELET COUNT, AUTOMATED 185 10^3/uL (150-450); RED BLOOD COUNT 4.76 10^6/uL (4.30-6.10); WHITE BLOOD COUNT 8.6 10^3/uL (4.0-10.0)
== END ==
LOC: M SFHCPLAZ 13:13
PROVIDERS: ATTEND Nurse Practitioner Family
DX: K75.9 Inflammatory liver disease, unspecified (principal)

== ENCOUNTER → 2019-07-12 | Outpatient (REF) | payer OTHER ==
[2019-07-12 13:49] LABS: ALBUMIN 3.6 GM/DL (3.2-5.2); ALT/SGPT 711 U/L (12-78); BILIRUBIN,TOTAL 1.5 MG/DL (0.2-1.0); BLOOD UREA NITROGEN 11 MG/DL (7-18); CALCIUM LEVEL 9.4 MG/DL (8.5-10.1); CARBON DIOXIDE LEVEL 31 MEQ/L (21-32); CHLORIDE LEVEL 103 MEQ/L (98-107); CREATININE FOR GFR 1.08 MG/DL (0.70-1.30); GLOMERULAR FILTRATION RATE > 60.0 (>60); GLUCOSE, FASTING 109 MG/DL (70-100); POTASSIUM SERUM 4.6 MEQ/L (3.5-5.1); SODIUM LEVEL 139 MEQ/L (136-145); TOTAL PROTEIN 7.7 GM/DL (6.4-8.2)
[2019-07-14 15:12] LABS: HEPATITIS C VIRUS ABY INDEX > 11.0 INDEX (<0.8)
[2019-07-17 14:41] LABS: HEPATITIS C VIRUS GENOTYPE 1b (.)
== END ==
LOC: M SFHCPLAZ 11:58
PROVIDERS: ATTEND Nurse Practitioner Family
DX: B19.20 Unspecified viral hepatitis C without hepatic coma (principal)

== ENCOUNTER → 2019-08-01 | Outpatient (REF) | payer OTHER ==
[2019-08-02 10:06] LABS: HEPATITIS A ANTIBODY IGM NEGATIVE (NEGATIVE); HEPATITIS B SURFACE ANTIGEN NEGATIVE (NEGATIVE)
[2019-08-06 16:40] LABS: HEPATITIS A IgG TOTAL Negative (Negative); HEPATITIS B CORE ANTIBODY IGG Negative (Negative); HEPATITIS C QUANTITATION 50 IU/mL (.)
== END ==
LOC: M SFHCPLAZ 13:33
PROVIDERS: ATTEND Internal Medicine Infectious Disease
DX: B18.2 Chronic viral hepatitis C (principal)

== ENCOUNTER 2019-08-22 11:29 | Emergency (ER) | payer OTHER ==
[~2019-08-22] VITALS: Ht 154.9 cm; Wt 65.0 kg
[2019-08-22 11:29] VITALS: BP 130/56
== END 2019-08-22 12:45 | disposition left against medical advice (07) ==
LOC: M ED 11:29
DX: Z53.21 Procedure and treatment not carried out due to patient leaving prior to being seen by health care provider (principal)

== ENCOUNTER 2019-10-25 06:52 | Emergency (ER) | payer OTHER ==
[~2019-10-25] VITALS: Ht 154.9 cm; Wt 62.0 kg
[2019-10-25 07:29] LABS: BASO # 0.1 10^3/uL (0.0-0.2); BASO % 0.5 % (0.0-1.0); EOS # 0.1 10^3/uL (0.0-0.5); EOS % 0.9 % (0.0-3.0); HEMATOCRIT 47.9 % (42.0-52.0); HEMOGLOBIN 15.8 g/dl (13.5-17.5); LYMPH # 2.4 10^3/uL (1.5-5.0); LYMPH % 25.8 % (24.0-44.0); MEAN CORPUSCULAR HEMOGLOBIN 30.5 pg (27.0-33.0); MEAN CORPUSCULAR VOLUME 92.5 fl (80.0-96.0); MONO # 0.7 10^3/uL (0.0-0.8); NEUTROPHILS # 5.9 10^3/uL (1.5-8.5); NEUTROPHILS % 64.3 % (36.0-66.0); PLATELET COUNT, AUTOMATED 164 10^3/uL (150-450); RED BLOOD COUNT 5.18 10^6/uL (4.30-6.10); WHITE BLOOD COUNT 9.2 10^3/uL (4.0-10.0)
--- NOTE | 2019-10-25 07:41 | REP ---
Clinical: Near syncopal episode. Comparison: None Findings: The mediastinum and cardiac silhouette are stable and within normal limits for portable technique. The lung day are clear without acute consolidation, effusion, or pneumothorax. Skeletal structures are intact. Impression: No acute cardiopulmonary process appreciated. Electronically Signed by Jay Ordaz MD 10/25/2019 07:33 A
--- NOTE | 2019-10-25 07:48 | REPVR ---
PROCEDURE INFORMATION: Exam: CT Head Without Contrast Exam date and time: 10/25/2019 7:30 AM Age: 33 years old Clinical indication: Pain; Headache; Additional info: Fall TECHNIQUE: Imaging protocol: Computed tomography of the head without contrast. Radiation optimization: All CT scans at this facility use at least one of these dose optimization techniques: automated exposure control; mA and/or kV adjustment per patient size (includes targeted exams where dose is matched to clinical indication); or iterative reconstruction. COMPARISON: CT Head without contrast 01/17/2019 11:25 AM FINDINGS: Brain: Normal. No hemorrhage. Unremarkable white matter. No mass effect. Ventricles: Normal. No ventriculomegaly. Bones/joints: Unremarkable. No acute fracture. Sinuses: Visualized sinuses are unremarkable. No fluid levels. Mastoid air cells: Visualized mastoid air cells are well aerated. Soft tissues: Unremarkable. IMPRESSION: No acute intracranial abnormality. Electronically signed by: Neri Cornejo On 10/25/2019 07:48:20 AM
[2019-10-25 07:53] VITALS: BP 114/70
[2019-10-25 08:00] LABS: BLOOD UREA NITROGEN 8 MG/DL (7-18); CARBON DIOXIDE LEVEL 24 MEQ/L (21-32); CHLORIDE LEVEL 105 MEQ/L (98-107); CK-MB VALUE MASS 1.5 NG/ML (<3.6); CPK CREATINE PHOSPHOKINASE 284 U/L (39-308); CREATININE FOR GFR 0.94 MG/DL (0.70-1.30); ETHYL ALCOHOL (ETHANOL) < 0.003 % (0.000-0.010); FREE T4 1.47 NG/DL (0.76-1.46); GLOMERULAR FILTRATION RATE > 60.0 (>60); GLUCOSE, FASTING 86 MG/DL (70-100); MB/CK RELATIVE INDEX 0.53 (< OR =4); POTASSIUM SERUM 3.5 MEQ/L (3.5-5.1); SODIUM LEVEL 138 MEQ/L (136-145); TROPONIN I < 0.02 NG/ML (< 0.10)
[2019-10-25 08:16] LABS: AMPHETAMINES LEVEL URINE POSITIVE (NEGATIVE); BARBITURATES URINE NEGATIVE (NEGATIVE); BENZODIAZEPINES URINE POSITIVE (NEGATIVE); CANNABINOIDS URINE POSITIVE (NEGATIVE); COCAINE METABOLITE URINE NEGATIVE (NEGATIVE); METHADONE URINE POSITIVE (NEGATIVE); OPIATES URINE POSITIVE (NEGATIVE); PHENCYCLIDINE URINE NEGATIVE (NEGATIVE)
[2019-10-25 08:21] LABS: INR 1.15; PROTHROMBIN TIME 14.4 SECONDS (11.8-14.0)
[2019-10-25 08:22] LABS: PARTIAL THROMBOPLASTIN TIME 31.6 SECONDS (25.0-38.4)
--- NOTE | 2019-10-25 10:19 | ECGEPIP ---
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
== END 2019-10-25 08:23 | disposition left against medical advice (07) ==
LOC: M ED 06:52
DX: R55 Syncope and collapse (principal); E05.90 Thyrotoxicosis, unspecified without thyrotoxic crisis or storm; Z86.19 Personal history of other infectious and parasitic diseases; F17.200 Nicotine dependence, unspecified, uncomplicated; Z53.21 Procedure and treatment not carried out due to patient leaving prior to being seen by health care provider; Z79.899 Other long term (current) drug therapy; Z91.040 Latex allergy status; Z88.2 Allergy status to sulfonamides
CPT/HCPCS: 70450; 71045; 80048; 80307; 81001; 82550; 82553; 83735; 84439; 84443; 85025; 85610; 85730; 93005; 93041; 94760; 99285; G0480

== ENCOUNTER → 2019-12-05 | Outpatient (CLI) | payer OTHER ==
[~2019-12-05] MED LIST changes: -MONT10TA2; +MONT10TA4
[2019-12-05 18:35] LABS: HEMATOCRIT 45.6 % (42.0-52.0)
[2019-12-05 19:04] LABS: VITAMIN B12 LEVEL 1487 PG/ML (247-911)
[2019-12-06 11:38] LABS: HIV 1&2 SCREEN CENTAUR NEGATIVE (NEGATIVE)
== END ==
LOC: M PLALAB 12:22
PROVIDERS: ATTEND Family Medicine
DX: R20.2 Paresthesia of skin (principal)

== ENCOUNTER 2020-03-31 02:01 | Inpatient (IN) | payer OTHER ==
[2020-03-31] VITALS (17 sets, daily range): BP systolic 87–104; BP diastolic 50–68; O2SAT 100
[2020-03-31] MEDS ORDERED: ETOMIDATE INJ 20MG/10ML VIAL ONE (02:02)
[2020-03-31] MEDS ORDERED: SUCCINYLCHOLINE 100 MG/5 ML SYRINGE (J0330) ONE (02:02)
[2020-03-31] MEDS ORDERED: PROPOFOL 1,000 MG/100 ML VIAL As Ordered ONE ×2 (02:04→04:21)
[2020-03-31] MEDS ORDERED: NS 1,000 ML IV ONE (02:15)
[2020-03-31] MEDS ORDERED: SUCCINYLCHOLINE INJ 200 MG/10 ML VIAL (J0330) IV ONE (02:15)
[2020-03-31] MEDS ORDERED: ETOMIDATE INJ 20MG/10ML VIAL IV ONE (02:15)
[2020-03-31 03:05] LABS: BASO # 0.1 10^3/uL (0.0-0.2); BASO % 0.3 % (0.0-1.0); EOS % 0.2 % (0.0-3.0); HEMATOCRIT 42.7 % (42.0-52.0); LYMPH # 1.7 10^3/uL (1.5-5.0); LYMPH % 11.2 % (24.0-44.0); MEAN CORPUSCULAR HEMOGLOBIN 31.3 pg (27.0-33.0); MEAN CORPUSCULAR HGB CONC 35.1 g/dl (32.0-36.5); MONO # 1.9 10^3/uL (0.0-0.8); MONO % 12.5 % (0.0-5.0); NEUTROPHILS # 11.1 10^3/uL (1.5-8.5); NEUTROPHILS % 74.9 % (36.0-66.0); PLATELET COUNT, AUTOMATED 177 10^3/uL (150-450); WHITE BLOOD COUNT 14.8 10^3/uL (4.0-10.0)
--- NOTE | 2020-03-31 03:09 | REPVR ---
PROCEDURE INFORMATION: Exam: CT Head Without Contrast Exam date and time: 03/31/2020 2:53 AM Age: 34 years old Clinical indication: Altered mental status/memory loss TECHNIQUE: Imaging protocol: Computed tomography of the head without contrast. Radiation optimization: All CT scans at this facility use at least one of these dose optimization techniques: automated exposure control; mA and/or kV adjustment per patient size (includes targeted exams where dose is matched to clinical indication); or iterative reconstruction. COMPARISON: CT Head without contrast 10/25/2019 7:28 AM FINDINGS: Tubes, catheters and devices: Endotracheal and endo gastric tubes are present. Brain: Normal. No hemorrhage. Unremarkable white matter. No mass effect. Ventricles: Normal. No ventriculomegaly. Bones/joints: Unremarkable. No acute fracture. Sinuses: Mild fluid in the ethmoid air cells and maxillary sinuses. Mastoid air cells: Visualized mastoid air cells are well aerated. Soft tissues: Unremarkable. IMPRESSION: No acute intracranial abnormality. Electronically signed by: Ramone Dwyer On 03/31/2020 03:09:19 AM
[2020-03-31 03:42] LABS: OSMOLALITY SERUM 286 MOSM/KG (275-295)
[2020-03-31 03:47] LABS: AMPHETAMINES LEVEL URINE POSITIVE (NEGATIVE); BARBITURATES URINE NEGATIVE (NEGATIVE); BENZODIAZEPINES URINE POSITIVE (NEGATIVE); CANNABINOIDS URINE POSITIVE (NEGATIVE); COCAINE METABOLITE URINE NEGATIVE (NEGATIVE); METHADONE URINE POSITIVE (NEGATIVE); OPIATES URINE POSITIVE (NEGATIVE); PHENCYCLIDINE URINE NEGATIVE (NEGATIVE)
[2020-03-31 03:59] LABS: ACETAMINOPHEN LEVEL < 2.0 UG/ML (10.0-30.0); ALBUMIN 3.4 GM/DL (3.2-5.2); ALT/SGPT 92 U/L (12-78); BILIRUBIN,DIRECT 0.2 MG/DL (0.0-0.2); BLOOD UREA NITROGEN 19 MG/DL (7-18); CALCIUM LEVEL 7.8 MG/DL (8.5-10.1); CARBON DIOXIDE LEVEL 21 MEQ/L (21-32); CHLORIDE LEVEL 102 MEQ/L (98-107); CPK CREATINE PHOSPHOKINASE 10494 U/L (39-308); CREATININE FOR GFR 1.42 MG/DL (0.70-1.30); ETHYL ALCOHOL (ETHANOL) 0.003 % (0.000-0.010); GLOMERULAR FILTRATION RATE > 60.0 (>60); GLUCOSE, FASTING 102 MG/DL (70-100); MB/CK RELATIVE INDEX 0.17 (< OR =4); POTASSIUM SERUM 3.7 MEQ/L (3.5-5.1); SALICYLATE LEVEL 4.8 MG/DL (5.0-30.0); SODIUM LEVEL 137 MEQ/L (136-145); THYROID STIMULATING HORMONE 0.148 uIU/ML (0.358-3.740); TOTAL PROTEIN 7.1 GM/DL (6.4-8.2); TROPONIN I 0.05 NG/ML (< 0.10)
[2020-03-31] MEDS ORDERED: NS 1,860 ML in IV 1 EA IV ONE (04:15)
[2020-03-31] MEDS ORDERED: propofoL 1,000 MG in IV 1 EA IV SCH (04:45)
[2020-03-31 05:19] LABS: INR 1.24; PROTHROMBIN TIME 15.3 SECONDS (11.8-14.0)
[2020-03-31 05:20] LABS: PARTIAL THROMBOPLASTIN TIME 30.4 SECONDS (25.0-38.4)
[2020-03-31] MEDS ORDERED: PANTOPRAZOLE 40MG VIAL (C9113 PER 1) IV ONE (06:00)
[2020-03-31] MEDS: PANTOPRAZOLE SODIUM 40 MG in D5W 50 ML IV SCH ×4 (06:24→19:51)
[2020-03-31 06:39] LABS: BASO % 0.3 % (0.0-1.0); EOS % 0.1 % (0.0-3.0); HEMATOCRIT 37.6 % (42.0-52.0); HEMOGLOBIN 13.3 g/dl (13.5-17.5); LYMPH # 2.8 10^3/uL (1.5-5.0); LYMPH % 18.1 % (24.0-44.0); MEAN CORPUSCULAR HEMOGLOBIN 31.6 pg (27.0-33.0); MEAN CORPUSCULAR HGB CONC 35.4 g/dl (32.0-36.5); MEAN CORPUSCULAR VOLUME 89.3 fl (80.0-96.0); MONO % 12.6 % (0.0-5.0); NEUTROPHILS # 10.6 10^3/uL (1.5-8.5); NEUTROPHILS % 68.3 % (36.0-66.0); PLATELET COUNT, AUTOMATED 156 10^3/uL (150-450); RED BLOOD COUNT 4.21 10^6/uL (4.30-6.10); WHITE BLOOD COUNT 15.5 10^3/uL (4.0-10.0)
[2020-03-31] MEDS ORDERED: PATIENT COMMENT (06:41)
[2020-03-31] MEDS ORDERED: PANTOPRAZOLE SODIUM 40 MG in D5W 50 ML IV SCH (07:45)
[2020-03-31 08:07] LABS: FREE T4 1.78 NG/DL (0.76-1.46)
--- NOTE | 2020-03-31 08:28 | REP ---
Portable chest x-ray: Single view. History: Altered mental status. Comparison chest x-ray: October 25, 2019. Findings: Nasogastric and endotracheal tubes are seen in good position. The endotracheal tube is noted at the level of the proximal clavicles. The lungs are well inflated and clear. Pleural angles are sharp. Heart is not enlarged. Impression: Endotracheal and nasogastric tubes in good position. Otherwise no acute disease. Electronically Signed by Chandan Mendoza MD 03/31/2020 08:20 A
[2020-03-31] MEDS: NS 1,000 ML IV SCH ×3 (08:56→21:23)
[2020-03-31] MEDS: D5W 1,000 ML IV SCH (09:58)
[2020-03-31] MEDS: propofoL 1,000 MG in IV 1 EA IV SCH ×4 (09:58→21:23)
[2020-03-31] MEDS: CHLORHEXIDINE GLUCONATE 0.12 % 15ML UDC (PERIDEX ORAL RINSE) MT SCH ×2 (10:00→19:51)
[2020-03-31 10:55] LABS: ABG BASE EXCESS -2.4 (-2.0-2.0); ABG HCO3 21.9 MEQ/L (22.0-26.0); ABG O2 SATURATION 99.4 % (95.0-99.0); ABG PARTIAL PRESSURE CO2 36.3 mmHg (35.0-45.0); ABG PARTIAL PRESSURE O2 171.4 mmHg (75.0-100.0); ABG STANDARD HCO3 22.5 MEQ/L (22.0-26.0); ABG pH (ARTERIAL) 7.398 UNITS (7.350-7.450)
--- NOTE | 2020-03-31 11:22 | HPE ---
DATE OF ADMISSION: 03/31/2020 CHIEF COMPLAINT: Altered mental status and respiratory failure. HISTORY OF PRESENT ILLNESS: History is obtained from the chart and other collateral information as the patient is intubated and unable to provide a history. Mr. Montenegro is a 34-year-old male with a past medical history of polysubstance abuse on methadone, hyperlipidemia, hyperthyroidism, status post radioactive iodine treatment, and hepatitis C, who presented with altered mental status secondary to drug overdose with Eli. The patient apparently had been on a binge for the past 2-3 days. He had gone to his family's house and was noted to be altered and walking with a shuffling gait. EMS was called and the patient reportedly was agitated. He was given medication for sedation with 250 mg of ketamine en route. The patient then had a seizure and was treated with 5 mg of Versed. The patient then had apneic episodes and required valve mask ventilation. On arrival to the ED, the patient was intubated for airway protection. He was started on propofol for sedation. The patient had an OG tube placed as well which had some hematemesis and dark black bloody gastric contents. He was started on a Protonix drip in the ED. The patient also received IV fluid hydration 2.86 liters. The patient was transferred to the medical ICU for further management. PAST MEDICAL AND SURGICAL HISTORY: 1. History of polysubstance abuse including IV drug use, on methadone. 2. Nicotine dependence. 3. Depression. 4. Hyperthyroidism, status post reactive iodine treatment. 5. Hyperlipidemia. 6. Allergic rhinitis. 7. Rosacea. 8. Hepatitis C, not treated. 9. Left inguinal hernia repair. 10. Septoplasty. ALLERGIES NO KNOWN DRUG ALLERGIES. MEDICATIONS: - methadone 40 mg daily - Singulair - Flonase as needed FAMILY HISTORY: Father age 25 with seizure. Mother with a history of diabetes and hypertension. Maternal grandfather with history of mesothelioma. Maternal grandmother with a history of myocardial infarction. SOCIAL HISTORY: Patient with history of polysubstance abuse including benzodiazepines, cocaine, cannabis, as well as, a history of IV drug use with opioids. Currently on methadone. Reportedly clean from heroin for the past 4-5 months. The patient is also an active smoker, smoking one half to a pack a day. PHYSICAL EXAMINATION: Temperature is 97.8, pulse 74, blood pressure 122/64, O2 sat 99% on 6% FiO2. Ins: 2.86 liters. General: The patient is intubated and sedated. He is not responding currently to painful stimuli as he is very deeply sedated. HEENT: Normocephalic, atraumatic. Pupils pinpoint, but reactive to light bilaterally. There are moist mucous membranes noted. Neck is supple. Trachea is midline. No palpable cervical adenopathy. Cardiac: Regular rate and rhythm. Normal S1, S2. Unable to appreciate murmurs. Point of maximal impulse (PMI) is nondisplaced. Pulmonary: There are coarse ventilated breath sounds bilaterally, but no adventitious breath sounds. No wheezes, rales or rhonchi. Abdomen is soft, nontender, nondistended. There is an OG tube in place draining some dark black output. Extremities: There is no lower extremity edema bilaterally. In the upper extremities, there is some scabbing and excoriations noted. LABORATORY DATA: WBC 15.5, hemoglobin 13.3 and platelets 156. Chemistry: Sodium is 137, potassium 3.7, chloride is 102, bicarb 21, BUN 19, creatinine is 1.42, glucose is 102, anion gap 14, lactic acid 4.6, AST 289, ALT 92, alkaline phosphatase 64, CPK 10,494, troponin negative, albumin 3.4, TSH is 0.148. Urine toxicology was positive for opioids, methadone, amphetamines, benzodiazepines, and cannabis. Alcohol level was negative. Salicylates and acetaminophen level negative. Initial ABG: pH 7.282, pCO2 of 49.9, pO2 of 532. Repeat ABG after intubation, pH of 7.327, pCO2 of 47.2 and pO2 of 310. IMAGING STUDIES: Head CT on admission showed no acute intracranial pathology. Chest x-ray shows ET tube and OG tube in good position. There are no focal opacities or infiltrates. No pleural effusions. ASSESSMENT AND PLAN: Mr. Montenegro is a 34-year-old male with a past medical history of depression, polysubstance abuse including IV drug use, hepatitis C, and hyperthyroidism status post radioactive iodine who presented with altered mental status secondary to intoxication and potential overdose from Eli. The patient was reportedly combative and agitated with EMS arrival and was given ketamine for sedation. After administration of ketamine, the patient had a seizure and was then given Versed. The patient was then noted to be apneic and agonal and required intubation in the ED and was placed on a mechanical ventilation. The patient was also found to have some bloody output from his OG tube and was placed on a Protonix drip in the ED. Metabolic encephalopathy secondary to drug intoxication. The patient's urine toxicology was positive for multiple drugs and he does have a previous history of polysubstance abuse. Patient also with acute seizures likely secondary to ketamine administration as well as a component of his Eli intoxication overdose. - The patient will be continued with propofol for sedation and Versed p.r.n. while intubated. - The patient is intubated currently for airway protection and on mechanical ventilation. Will continue him with PRVC with settings of 450/14/50/5 and continue to wean down FIO2 as tolerated to maintain O2 sat above 90%. - Continue with vent bundle care while intubated with head of bed elevation and chlorhexidine mouthwash. - Continue with daily ABGs and chest x-rays while intubated. - Will continue with daily sedation vacation and weaning trials as tolerated. - Continue to monitor for seizures and will treat with p.r.n. benzodiazepines. Rhabdomyolysis secondary to Eli overdose with acute kidney injury (MELINA) and elevated CPK. - Will continue with IV fluid hydration and continue to trend CPK levels. Will give normal saline at 150 mL an hour and will also add D5W at 50 mL an hour. - Will continue to monitor electrolytes and replete as needed. - Will monitor for iatrogenic hypernatremia and hyperchloremia. - The patient did have some mild lactic acidosis likely in the setting of his acute seizure with a mild anion gap. Will continue to trend lactic acid, but his repeat ABG shows improvement in his acidosis. - Will continue with Leach and monitoring of ins and outs. Possible acute upper GI bleed. The patient had an OG tube placed after intubation which showed some coffee-ground material from the OG tube. He was started on a Protonix drip in the ED. - Will continue with Protonix. - Will continue to monitor hemoglobin/hematocrit (H/H) and transfuse if needed. Will keep an active type and screen. - Will keep patient nothing by mouth with OG tube to low wall intermittent suction. History of hepatitis C, not treated. The patient had transaminitis on admission which may be secondary to his elevated CPK as well as potentially from Eli overdose. - Will continue to monitor LFTs. History of hyperthyroidism, status post radioactive iodine treatment. His TSH was low, so will check a free T4. the patient may have a component of mild hyperthyroidism still despite his previous treatment. Deep vein thrombosis (DVT) prophylaxis. Thromboembolic deterrent stockings (TEDS) and sequential compression devices (SCDs). Gastrointestinal (GI) prophylaxis. Protonix drip. CODE STATUS: Full code. Total critical care time spent, not including procedures approximately 2 hours. MTDD
[2020-03-31] MEDS: MIDAZOLAM INJ 2MG/2ML VIAL (J2250 PER 1MG) IV PRN ×3 (12:33→21:19)
[2020-03-31 14:07] LABS: BLOOD UREA NITROGEN 13 MG/DL (7-18); CALCIUM LEVEL 7.7 MG/DL (8.5-10.1); CARBON DIOXIDE LEVEL 24 MEQ/L (21-32); CHLORIDE LEVEL 108 MEQ/L (98-107); CPK CREATINE PHOSPHOKINASE 11257 U/L (39-308); CREATININE FOR GFR 0.84 MG/DL (0.70-1.30); GLOMERULAR FILTRATION RATE > 60.0 (>60); GLUCOSE, FASTING 116 MG/DL (70-100); MAGNESIUM LEVEL 2.4 MG/DL (1.8-2.4); PHOSPHORUS LEVEL 2.6 MG/DL (2.5-4.9); POTASSIUM SERUM 3.6 MEQ/L (3.5-5.1); SODIUM LEVEL 136 MEQ/L (136-145)
[2020-04-01] VITALS (12 sets, daily range): BP systolic 89–110; BP diastolic 53–68; O2SAT 100
[2020-04-01] MEDS: MIDAZOLAM INJ 2MG/2ML VIAL (J2250 PER 1MG) IV PRN ×6 (00:19→05:55)
[2020-04-01] MEDS: PANTOPRAZOLE SODIUM 40 MG in D5W 50 ML IV SCH ×2 (01:00→05:40)
[2020-04-01] MEDS: propofoL 1,000 MG in IV 1 EA IV SCH ×2 (01:45→05:41)
[2020-04-01] MEDS: NS 1,000 ML IV SCH (03:45)
[2020-04-01] MEDS: D5W 1,000 ML IV SCH (04:20)
[2020-04-01 04:40] LABS: BASO % 0.3 % (0.0-1.0); EOS # 0.1 10^3/uL (0.0-0.5); HEMATOCRIT 41.2 % (42.0-52.0); HEMOGLOBIN 14.1 g/dl (13.5-17.5); LYMPH # 1.8 10^3/uL (1.5-5.0); LYMPH % 19.4 % (24.0-44.0); MEAN CORPUSCULAR HEMOGLOBIN 31.2 pg (27.0-33.0); MEAN CORPUSCULAR HGB CONC 34.2 g/dl (32.0-36.5); MEAN CORPUSCULAR VOLUME 91.2 fl (80.0-96.0); MONO # 0.9 10^3/uL (0.0-0.8); MONO % 10.3 % (0.0-5.0); NEUTROPHILS # 6.2 10^3/uL (1.5-8.5); NEUTROPHILS % 68.6 % (36.0-66.0); PLATELET COUNT, AUTOMATED 116 10^3/uL (150-450); RED BLOOD COUNT 4.52 10^6/uL (4.30-6.10)
[2020-04-01 05:24] LABS: ALBUMIN 2.8 GM/DL (3.2-5.2); ALT/SGPT 87 U/L (12-78); BILIRUBIN,TOTAL 0.9 MG/DL (0.2-1.0); BLOOD UREA NITROGEN 9 MG/DL (7-18); CALCIUM LEVEL 7.5 MG/DL (8.5-10.1); CARBON DIOXIDE LEVEL 26 MEQ/L (21-32); CHLORIDE LEVEL 109 MEQ/L (98-107); CREATININE FOR GFR 0.81 MG/DL (0.70-1.30); GLOMERULAR FILTRATION RATE > 60.0 (>60); GLUCOSE, FASTING 64 MG/DL (70-100); PHOSPHORUS LEVEL 1.8 MG/DL (2.5-4.9); POTASSIUM SERUM 3.6 MEQ/L (3.5-5.1); SODIUM LEVEL 142 MEQ/L (136-145); TOTAL PROTEIN 5.9 GM/DL (6.4-8.2)
[2020-04-01 06:17] LABS: ABG HCO3 23.3 MEQ/L (22.0-26.0); ABG O2 SATURATION 99.1 % (95.0-99.0); ABG PARTIAL PRESSURE CO2 37.5 mmHg (35.0-45.0); ABG PARTIAL PRESSURE O2 134.5 mmHg (75.0-100.0); ABG STANDARD HCO3 23.7 MEQ/L (22.0-26.0); ABG TOTAL CO2 24.4 MEQ/L (22.0-29.0); ABG pH (ARTERIAL) 7.411 UNITS (7.350-7.450)
[2020-04-01] MEDS ORDERED: DEXTROSE 50% 50 ML SYRINGE IV PRN (09:00)
[2020-04-01] MEDS ORDERED: GLUCAGON INJ 1MG VIAL SC PRN (09:00)
[2020-04-01] MEDS ORDERED: GLUCOSE 4GM CHEW TABLET PO PRN (09:00)
[2020-04-01 09:21] LABS: CPK CREATINE PHOSPHOKINASE 13581 U/L (39-308)
--- NOTE | 2020-04-01 11:00 | DS.PDOC ---
Discharge Summary General Date of Admission Mar 31, 2020 at 07:33 Date of Discharge 04/01/20 Attending Physician: RODOLFO CARTER MD Discharge Summary PROCEDURES PERFORMED DURING STAY: Endotracheal intubation ADMITTING DIAGNOSES: 1. Drug intoxication/overdose 2. Respiratory failure, mechanical ventilation 3. Rhabdomyolysis 4. Acute renal failure 5. Upper GI bleed DISCHARGE DIAGNOSES: 1. Drug intoxication, overdose 2. Rhabdomyolysis 3. Upper GI bleed 4. Hyperthyroidism COMPLICATIONS/CHIEF COMPLAINT: Acute Respiratory Failure. HISTORY OF PRESENT ILLNESS: Mr. Montenegro is a 34-year-old male with a past medical history of polysubstance abuse on methadone, hyperlipidemia, hyperthyroidism, status post radioactive iodine treatment, and hepatitis C, who presented with altered mental status secondary to drug overdose with Eli. The patient apparently had been on a binge for the past 2-3 days. He had gone to his family's house and was noted to be altered and walking with a shuffling gait. EMS was called and the patient reportedly was agitated. He was given medication for sedation with 250 mg of ketamine en route. The patient then had a seizure and was treated with 5 mg of Versed. The patient then had apneic episodes and required bag valve mask ventilation. On arrival to the ED, the patient was intubated for airway protection. He was started on propofol for sedation. The patient had an OG tube placed as well which had some hematemesis and dark black bloody gastric contents. He was started on a Protonix drip in the ED. The patient also received IV fluid hydration 2.86 liters. The patient was transferred to the medical ICU for further management. HOSPITAL COURSE: In the ICU patient was on mechanical ventilation with PRVC mode, was weaned down on FiO2 to 25%. He was continued on propofol for sedation. Patient was given IVF hydration with improvement in his renal function. He was continued on protonix drip with improvement in OGT output with more bilious output and less coffee grounds. Patient had a sedation vacation and weaning trial performed on morning of 04/01/20 which he tolerated well and was extubated to aerosolized oxygen. Patient was awake and alert, oriented to times three and answering questions appropriately. Patient then started demanding that he leave the hospital to make his appointment with his other doctor and to get his methadone. We informed patient that he can get methadone and other medications for anxiety here. He then said he didn't trust the hospital here to treat him with the correct medications and still wanted to leave because he had other issues that needed taken care of. He was informed with the nurse present that he had rhabdomyolysis and acute renal failure and required continued medical stay for treatment of those issues not to mention monitoring his respiratory status and GIB. Patient was informed that if he left against medical advise he would be at risk for worsening renal failure, bleeding, cardiac arrest, respiratory arrest and . Patient verbally stated he understood the risks of leaving and our recommendation for continuing to stay in the hospital but that he still chose to leave AMA and signed the form with nurse as witness. DISCHARGE MEDICATIONS: Please see below. ALLERGIES: Please see below. PHYSICAL EXAMINATION ON DISCHARGE: VITAL SIGNS: Please see below. General: The patient is awake and alert, oriented x3, appears anxious HEENT: Normocephalic, atraumatic. Pupils pinpoint, but reactive to light bilaterally. There are moist mucous membranes noted. Neck is supple. Trachea is midline. No palpable cervical adenopathy. Cardiac: Regular rate and rhythm. Normal S1, S2. Unable to appreciate murmurs. Point of maximal impulse (PMI) is nondisplaced. Pulmonary: There are coarse breath sounds bilaterally, but no adventitious breath sounds. No wheezes, rales or rhonchi. Abdomen is soft, nontender, nondistended. Extremities: There is no lower extremity edema bilaterally. In the upper extremities, there is some scabbing and excoriations noted. LABORATORY DATA: Please see below. IMAGING: CT head 03/31/20 FINDINGS: Tubes, catheters and devices: Endotracheal and endo gastric tubes are present. Brain: Normal. No hemorrhage. Unremarkable white matter. No mass effect. Ventricles: Normal. No ventriculomegaly. Bones/joints: Unremarkable. No acute fracture. Sinuses: Mild fluid in the ethmoid air cells and maxillary sinuses. Mastoid air cells: Visualized mastoid air cells are well aerated. Soft tissues: Unremarkable. IMPRESSION: No acute intracranial abnormality ACTIVITY: As tolerated DISCHARGE PLAN: Left AMA DISPOSITION: Against Medical Advice. DISCHARGE INSTRUCTIONS: 1. Left AMA DISCHARGE CONDITION: Not medically cleared, left against medical advise TIME SPENT ON DISCHARGE: Greater than 30 minutes. Vital Signs/I&Os Vital Signs Date Time Temp Pulse Resp B/P (MAP) Pulse Ox O2 Delivery O2 Flow Rate FiO2 04/01/20 07:01 80 14 98 25 04/01/20 06:00 107/68 (81) Ventilator 04/01/20 04:00 97.8 I&O- Last 24 Hours up to 6 AM 04/01/20 06:00 Intake Total 5432.3 ml Output Total 1995 ml Balance 3437.3 ml Laboratory Data Labs 24H Laboratory Tests 2 03/31/20 12:55: Anion Gap 4L, Glomerular Filtration Rate > 60.0, Calcium Level 7.7L, Phosphorus Level 2.6, Magnesium Level 2.4, Total Creatine Kinase 77272K 04/01/20 04:25: Anion Gap 7L, Glomerular Filtration Rate > 60.0, Calcium Level 7.5L, Phosphorus Level 1.8#L, Magnesium Level 2.0, Total Creatine Kinase 76656W, Immature Granulocyte % (Auto) 0.4, Neutrophils (%) (Auto) 68.6H, Lymphocytes (%) (Auto) 19.4L, Monocytes (%) (Auto) 10.3H, Eosinophils (%) (Auto) 1.0, Basophils (%) (Auto) 0.3, Neutrophils # (Auto) 6.2, Lymphocytes # (Auto) 1.8, Monocytes # (Auto) 0.9H, Eosinophils # (Auto) 0.1, Basophils # (Auto) 0.0, Nucleated Red Blood Cells % (auto) 0.0, Total Bilirubin 0.9, Aspartate Amino Transf (AST/SGOT) 321H, Alanine Aminotransferase (ALT/SGPT) 87H, Alkaline Phosphatase 56, Total Protein 5.9L, Albumin 2.8L, Albumin/Globulin Ratio 0.9 04/01/20 06:07: Bedside Glucose (Misc Panel) 78 04/01/20 06:10: Blood Gas Bicarbonate Standard 23.7, Arterial Blood pH 7.411, Arterial Blood Partial Pressure CO2 37.5, Arterial Blood Partial Pressure O2 134.5H, Arterial Blood Total CO2 24.4, Arterial Blood HCO3 23.3, Arterial Blood Base Excess -1.0, Arterial Blood Oxygen Saturation 99.1H CBC/BMP Laboratory Tests 03/31/20 12:55 04/01/20 04:25 FSBS Laboratory Tests Test 04/01/20 06:07 Range/Units Bedside Glucose (Misc Panel) 78 70-105 MG/DL Discharge Medications Scheduled Cetirizine HCl (Cetirizine HCl) 10 Mg Tablet, 10 MG PO QHS, (Reported) Fluticasone Propionate (Flonase Allergy Relief) 9.9 Ml Dameron.susp, 2 SPRAYS NA DAILY, (Reported) Miscellaneous Medications Methadone HCl (Methadone HCl) 5 Mg Tablet, 30 MG PO, (Reported) [Patient Comment] , (Reported) PATIENT INTUBATED AT THIS TIME, UNABLE TO DISCUSS MEDICATION HISTORY. Allergies Coded Allergies: Latex, Natural Rubber (Verified Allergy, Intermediate, RASH, 03/31/20) Sulfa (Sulfonamide Antibiotics) (Verified Allergy, Unknown, 03/31/20) RODOLFO CARTER MD Apr 01, 2020 11:00
--- NOTE | 2020-04-01 11:21 | REP ---
Portable chest x-ray: Single view. History: Intubated patient. Comparison chest x-ray: March 31, 2020. Findings: Endotracheal tube is seen position just above the leann, 1.7 cm. An NG tube enters left upper quadrant of the abdomen. Monitoring electrodes and oxygen delivery tubing are seen. No focal infiltrate. Heart size is normal. Electronically Signed by Chandan Mendoza MD 04/01/2020 07:45 A
--- NOTE | 2020-04-01 15:32 | ECGEPIP ---
[facility] - ED Test Date: 2020-03-31 Pat Name: LACHELLE ANNA Department: Room: - Gender: Male Paper Hanger: arden : 1985 Requested By: YAMIL Nicholson Order Number: [id number] Reading MD: Lanre Rivero Measurements Intervals [place] Rate: 109 P: 54 MD: 123 QRS: 55 QRSD: 77 T: 63 QT: 329 QTc: 444 Interpretive Statements SINUS TACHYCARDIA Rate increased from tracing done 10-25-19 Electronically Signed on 04-01-2020 15:31:37 EDT by Lanre Rivero
== END 2020-04-01 09:38 | disposition left against medical advice (07) | DRG 812 ==
LOC: M ED 02:01 → M ED INP 07:33 → ENRESERV 07:58 → M ICU 09:26
PROVIDERS: ADMIT Internal Medicine Pulmonary Disease; ATTEND Internal Medicine Pulmonary Disease
PROC: 5A0935Z Assistance with Respiratory Ventilation, Less than 24 Consecutive Hours (ICD-10-PCS; principal; 2020-03-31)
DX: T40.991A Poisoning by other psychodysleptics [hallucinogens], accidental (unintentional), initial encounter (principal); G93.41 Metabolic encephalopathy; N17.9 Acute kidney failure, unspecified; E87.2 Acidosis; M62.82 Rhabdomyolysis; K92.2 Gastrointestinal hemorrhage, unspecified; E78.5 Hyperlipidemia, unspecified; E05.90 Thyrotoxicosis, unspecified without thyrotoxic crisis or storm; B18.2 Chronic viral hepatitis C; Z88.2 Allergy status to sulfonamides; Z91.040 Latex allergy status; F17.200 Nicotine dependence, unspecified, uncomplicated

== ENCOUNTER 2020-06-02 15:40 | Emergency (ER) | payer OTHER ==
[~2020-06-02] VITALS: Ht 152.4 cm; Wt 65.9 kg
[~2020-06-02 15:40] MED LIST changes: -ALL10TAB29 PO; +CETI-24 PO; +PATIENT COMMENT
[2020-06-02 17:30] LABS: BASO # 0.1 10^3/uL (0.0-0.2); BASO % 0.8 % (0.0-1.0); EOS # 0.2 10^3/uL (0.0-0.5); EOS % 2.7 % (0.0-3.0); HEMATOCRIT 44.3 % (42.0-52.0); HEMOGLOBIN 15.2 g/dl (13.5-17.5); LYMPH # 1.6 10^3/uL (1.5-5.0); LYMPH % 27.3 % (24.0-44.0); MEAN CORPUSCULAR HEMOGLOBIN 31.5 pg (27.0-33.0); MEAN CORPUSCULAR HGB CONC 34.3 g/dl (32.0-36.5); MEAN CORPUSCULAR VOLUME 91.9 fl (80.0-96.0); MONO # 0.4 10^3/uL (0.0-0.8); MONO % 7.1 % (0.0-5.0); NEUTROPHILS # 3.7 10^3/uL (1.5-8.5); NEUTROPHILS % 61.8 % (36.0-66.0); PLATELET COUNT, AUTOMATED 227 10^3/uL (150-450); RED BLOOD COUNT 4.82 10^6/uL (4.30-6.10); WHITE BLOOD COUNT 5.9 10^3/uL (4.0-10.0)
[2020-06-02 18:03] LABS: CK-MB VALUE MASS < 1.0 NG/ML (<3.6); CPK CREATINE PHOSPHOKINASE 86 U/L (39-308); MB/CK RELATIVE INDEX 1.16 (< OR =4); TROPONIN I < 0.02 NG/ML (< 0.10)
[2020-06-02 19:14] VITALS: BP 143/99
[2020-06-02] MEDS ORDERED: KETOROLAC 60MG 2ML VIAL IM ONE (19:15)
--- NOTE | 2020-06-25 11:17 | ECGEPIP ---
[facility] - ED Test Date: 2020-06-02 Pat Name: LACHELLE ANNA Department: Room: - Gender: Male Pan Puller: SIVAN : 1985 Requested By: Gera Schmitt Order Number: [id number] Reading MD: Gera Perera Measurements Intervals [place] Rate: 68 P: 35 RI: 145 QRS: 24 QRSD: 81 T: 46 QT: 423 QTc: 453 Interpretive Statements SINUS RHYTHM NORMAL ECG NON SPECIFIC STT WAVE CHANGES SEE SCANNED DOWNTIME REPORT
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
== END 2020-06-02 19:47 | disposition home or self-care (01) ==
LOC: M ED 15:40
DX: S22.49XA Multiple fractures of ribs, unspecified side, initial encounter for closed fracture (principal); Y04.8XXA Assault by other bodily force, initial encounter; Y92.149 Unspecified place in prison as the place of occurrence of the external cause; Y93.9 Activity, unspecified; Y99.9 Unspecified external cause status; F17.200 Nicotine dependence, unspecified, uncomplicated; F12.10 Cannabis abuse, uncomplicated; Z79.899 Other long term (current) drug therapy; Z88.2 Allergy status to sulfonamides; Z91.040 Latex allergy status
CPT/HCPCS: 71101; 80047; 82550; 82553; 85025; 93005; 96374; 99284; J1885

== ENCOUNTER 2025-05-18 09:19 | Day surgery (SDC) | payer OTHER ==
[~2025-05-18] VITALS: Ht 152.4 cm; Wt 86.7 kg
[~2025-05-18 09:19] MED LIST changes: +BUPR150T12; -BUPR150T3; +ESCI10TA16; -ESCI10TA2; +METH-1175 PO; -MONT10TA4; +MONT10TA97; -[UNRECOGNIZED DRUG - CODE] PO; +dexAMETHasone 4 MG/ML 1 ML VIAL IV ONE
[2025-05-18] MEDS ORDERED: ROCURONIUM BROMIDE 50MG/5ML VIAL As Ordered ONE (09:34)
[2025-05-18] MEDS ORDERED: ONDANSETRON 4MG 2ML VIAL As Ordered ONE (09:35)
[2025-05-18] MEDS ORDERED: LIDOCAINE 2% 100 MG/5 ML SDV (FOR ANES.) As Ordered ONE (09:35)
[2025-05-18] MEDS ORDERED: SUGAMMADEX SODIUM 500 MG/5 ML VIAL As Ordered ONE (09:35)
[2025-05-18] MEDS ORDERED: dexAMETHasone 4 MG/ML 1 ML VIAL As Ordered ONE (09:35)
[2025-05-18] MEDS ORDERED: LR 1,000 ML IV SCH ×2 (09:45→13:10)
[2025-05-18] MEDS ORDERED: MIDAZOLAM INJ 2 MG/2 ML VIAL As Ordered ONE (11:22)
[2025-05-18] MEDS: AMPICILLIN SOD/SULBACTAM SOD 3 GM in D5W MINI-BAG 100 ML IV ONE (12:08)
[2025-05-18] MEDS: OXYMETAZOLINE 0.05% NASAL SPRAY As Ordered ONE (12:10)
[2025-05-18] MEDS ORDERED: ACETAMINOPHEN 1000MG/100ML IV BAG As Ordered ONE (12:25)
[2025-05-18] MEDS: CHLORHEXIDINE GLUCONATE 0.12% 15 ML UDC As Ordered ONE (12:33)
[2025-05-18] MEDS ORDERED: HYDROMORPHONE HCL 0.5 MG/0.5 ML SYRINGE IV PRN (13:10)
[2025-05-18 13:45] VITALS: BP 118/71; TEMP 97.4; O2SAT 96
== END 2025-05-18 14:06 | disposition home or self-care (01) ==
LOC: M SDC 09:19
PROVIDERS: ATTEND Dentist
DX: K02.9 Dental caries, unspecified (principal); K21.9 Gastro-esophageal reflux disease without esophagitis; E05.90 Thyrotoxicosis, unspecified without thyrotoxic crisis or storm; F17.210 Nicotine dependence, cigarettes, uncomplicated; F12.10 Cannabis abuse, uncomplicated; Z92.3 Personal history of irradiation; Z79.891 Long term (current) use of opiate analgesic
CPT/HCPCS: 88300; D7140; D7210; D9223; J0131; J0295; J0666; J1100; J2250; J2405; J3010